=== PATIENT | male | born 1955 | race Caucasian/White ===

== ENCOUNTER 2019-12-31 13:31 | Emergency (ER) | payer MEDICARE ==
[2019-12-31] MEDS ORDERED: predniSONE 20 MG TAB ONE ×2 (14:15→14:16)
[2019-12-31] MEDS ORDERED: Morphine 4 MG/ML VIAL ONE (14:15)
[2019-12-31] MEDS ORDERED: Ketorolac Tromethamine 30 MG/ML VIAL ONE (14:15)
[2019-12-31] MEDS ORDERED: Morphine 2 MG/ML SYRINGE ONE (14:15)
== END 2019-12-31 14:35 | disposition home or self-care (01) ==
LOC: BURERS 13:31
DX: S39.012A Strain of muscle, fascia and tendon of lower back, initial encounter (principal); N40.0 Benign prostatic hyperplasia without lower urinary tract symptoms; E78.5 Hyperlipidemia, unspecified; E78.00 Pure hypercholesterolemia, unspecified; Z79.899 Other long term (current) drug therapy; X50.0XXA Overexertion from strenuous movement or load, initial encounter
CPT/HCPCS: 96372; 99283; J1885; J2270; J7512

== ENCOUNTER 2021-07-15 11:48 | Outpatient (CLI) | payer MEDICARE | END 2021-07-15 11:49 | disposition home or self-care (01) | LOC: BURRAD 11:48 | PROVIDERS: ATTEND Family Medicine | DX: M54.50 Low back pain, unspecified (principal); K80.20 Calculus of gallbladder without cholecystitis without obstruction; N28.89 Other specified disorders of kidney and ureter | CPT/HCPCS: 72100 ==

== ENCOUNTER 2024-02-12 08:09 | Outpatient (CLI) | payer MEDICARE ==
[2024-02-12] MEDS ORDERED: Iopamidol 370 76% 100 ML VIAL ONE (10:00)
== END 2024-02-12 08:10 | disposition home or self-care (01) ==
LOC: BURCT 08:09
PROVIDERS: ATTEND Urology
DX: N40.1 Benign prostatic hyperplasia with lower urinary tract symptoms (principal); N20.0 Calculus of kidney; R97.20 Elevated prostate specific antigen [PSA]; R39.198 Other difficulties with micturition; K57.90 Diverticulosis of intestine, part unspecified, without perforation or abscess without bleeding; K80.20 Calculus of gallbladder without cholecystitis without obstruction; N28.1 Cyst of kidney, acquired; K76.89 Other specified diseases of liver
CPT/HCPCS: 74178; Q9967